=== PATIENT | female | born 1955 | race African-American/Black ===

== ENCOUNTER 2017-10-07 14:24 | Emergency (ER) | payer BC ==
[~2017-10-07] VITALS: Ht 162.6 cm; Wt 90.9 kg
[~2017-10-07 14:24] MED LIST: ALBUTEROL0.83 MG/ML IH; AMOXICILLIN 8751 TAB PO; LORTAB 7.5/5001 TAB PO; MULTI VITAMINS1 TAB PO; NO HOME MEDICATIONS; ORPHENADRINE C100 MG PO; PERCOCET 5/321 UDTAB PO; PRILOSEC 20MG20 MG PO; PROMETHAZINE V118 M2 PO; PROVENTIL0.09 MG/A1 IH
[2017-10-07 14:34] VITALS: BP 154/82; TEMP 97.9
[2017-10-07] MEDS ORDERED: NAPROSYN500 MG PO (18:07)
[2017-10-07 18:11] VITALS: PULSE 65
== END 2017-10-07 18:14 | disposition home or self-care (01) ==
LOC: COL.ER 14:24
DX: M25.572 Pain in left ankle and joints of left foot (principal); M79.672 Pain in left foot; W00.0XXA Fall on same level due to ice and snow, initial encounter; Y92.009 Unspecified place in unspecified non-institutional (private) residence as the place of occurrence of the external cause
CPT/HCPCS: J1885

== ENCOUNTER 2017-11-10 22:17 | Emergency (ER) | payer OTHER, BC ==
[~2017-11-10] VITALS: Ht 162.6 cm; Wt 93.8 kg
[~2017-11-10 22:17] MED LIST changes: +NAPROSYN500 MG PO
[2017-11-10 22:22] VITALS: BP 150/80; TEMP 97.9
[2017-11-10] MEDS ORDERED: VITAMIN D31000 I1 PO (22:41)
[2017-11-10] MEDS ORDERED: NAPROSYN500 MG PO (23:01)
[2017-11-10] MEDS ORDERED: FLEXERIL 1010 MG/TAB PO (23:01)
[2017-11-10 23:20] VITALS: PULSE 59
== END 2017-11-10 23:15 | disposition home or self-care (01) ==
LOC: COL.ER 22:17
DX: S20.219A Contusion of unspecified front wall of thorax, initial encounter (principal); V89.2XXA Person injured in unspecified motor-vehicle accident, traffic, initial encounter
CPT/HCPCS: A9284

== ENCOUNTER 2017-11-17 01:58 | Emergency (ER) | payer BC ==
[~2017-11-17] VITALS: Ht 162.6 cm; Wt 100.0 kg
[~2017-11-17 01:58] MED LIST changes: +FLEXERIL 1010 MG/TAB PO; +VITAMIN D31000 I1 PO
[2017-11-17 02:08] VITALS: BP 138/80; PULSE 70; TEMP 97.5
== END 2017-11-17 02:59 | disposition home or self-care (01) ==
LOC: COL.ER 01:58
DX: S70.01XA Contusion of right hip, initial encounter (principal); M79.672 Pain in left foot; X50.0XXA Overexertion from strenuous movement or load, initial encounter; W19.XXXA Unspecified fall, initial encounter

== ENCOUNTER → 2017-12-01 | Outpatient (CLI) | payer BC | LOC: COL.RAD 14:45 | DX: S86.312A Strain of muscle(s) and tendon(s) of peroneal muscle group at lower leg level, left leg, initial encounter (principal); M65.872 Other synovitis and tenosynovitis, left ankle and foot; M19.072 Primary osteoarthritis, left ankle and foot; M76.72 Peroneal tendinitis, left leg; S93.602A Unspecified sprain of left foot, initial encounter ==

== ENCOUNTER → 2019-03-11 | Outpatient (CLI) | payer BC | LOC: MC.RAD 02-15 09:30 | DX: Z12.31 Encounter for screening mammogram for malignant neoplasm of breast (principal) ==

== ENCOUNTER 2019-06-29 19:10 | Emergency (ER) | payer BC ==
[~2019-06-29] VITALS: Ht 162.6 cm; Wt 104.5 kg
[2019-06-29 19:23] VITALS: BP 164/82; TEMP 98.9
[2019-06-29 19:43] LABS: STREP SCREEN NEGATIVE
[2019-06-29] MEDS ORDERED: MAGIC MOUTH PO (20:03)
[2019-06-29 20:20] VITALS: PULSE 78
== END 2019-06-29 20:20 | disposition home or self-care (01) ==
LOC: COL.ER 19:10
PROVIDERS: Physician Assistant
DX: B34.9 Viral infection, unspecified (principal); J02.9 Acute pharyngitis, unspecified